=== PATIENT | female | born 1995 | race Caucasian/White ===

== ENCOUNTER 2018-09-29 12:51 | Emergency (ER) | END 2018-09-29 18:37 | disposition home or self-care (01) ==

== ENCOUNTER 2018-10-16 12:06 | Emergency (ER) | payer OTHER ==
[~2018-10-16] VITALS: Wt 65.3 kg
[~2018-10-16 12:06] MED LIST: CEPH-443 PO; CYCL10TA7 PO; DOXY1TAB3 PO; IBUP-1542 PO
[2018-10-16] MEDS ORDERED: SOD CHLORIDE 0.9% 1,000 ML IV STA (13:34)
--- NOTE | 2018-10-16 13:47 | ERD ---
ER Documentation Chief Complaint Chief Complaint 11wks preg: vom x3d, vag bld x2 episodes 2d ago, L sided AP hx ova cyst HPI 23-year-old 11-week history of hyperemesis and left side ovarian cyst presents vomiting vaginal bleeding. Patient was seen for vomiting in our ER on September 29. Patient has been taking 10 mg of metoclopramide, last intake was 5 AM this morning states that it only worked for the first week. Patient denies fevers, bilious vomiting, dysuria, back pain. In addition, patient states that she experienced episodes vaginal bleeding. First episode occurred on the , she noticed blood in her urine, and she went through one pad. Second episode occurred 3 days ago. He noticed blood on underwear, did not go through any pads. Patient's last visit she was diagnosed with the UTI she states she may not have finished her course of antibiotics. States that she has been having polyuria, and incomplete voiding. Also states that she is having some mild LLQ abdominal pain. History of left-sided ovarian cysts. Denies allergies. Taking metoclopramide 10 mg. History of . Denies social. ROS All systems reviewed and are negative except as per history of present illness. Medications Home Meds Active Scripts Meclizine Hcl* (Meclizine Hcl*) 25 Mg Tablet, 25 MG PO Q6H PRN for VOMITTING, #30 TAB 0 Refills Prov:LEOBARDO GODDARD 10/16/18 Cephalexin* (Keflex*) 500 Mg Capsule, 500 MG PO TID for UTI for 7 Days, #21 CAP 0 Refills Prov:LEOBARDO GODDARD 10/16/18 Cephalexin* (Keflex*) 500 Mg Capsule, 500 MG PO BID for 7 Days, CAP Prov:FELIX DURANT MD 09/29/18 Doxylamine/Pyridoxine Hcl (DERICK TRAVIS 10-10 MG TABLET) 1 Each Tablet., 1 TAB PO BID PRN for NAUSEA, #30 TAB Prov:FELIX DURANT MD 09/29/18 Cyclobenzaprine Hcl* (Cyclobenzaprine Hcl*) 10 Mg Tablet, 10 MG PO TID, #15 TAB Prov:YUSUF SCHAEFER PA-C 06/04/16 Ibuprofen* (Ibuprofen*) 600 Mg Tablet, 600 MG PO Q6H PRN for PAIN LEVEL 1-5, #30 TAB Prov:YUSUF SCHAEFER PA-C 06/04/16 Cephalexin* (Keflex*) 500 Mg Capsule, 500 MG PO Q6 for 10 Days, CAP Prov:MOSHE CONKLIN MD 09/28/15 Ibuprofen* (Motrin*) 600 Mg Tab, 600 MG PO Q6H PRN for PAIN AND OR ELEVATED TEMP, #20 TAB Prov:MOSHE CONKLIN MD 09/28/15 Allergies Allergies: Coded Allergies: No Known Allergy (Unverified , 04/14/15) PMhx/Soc History of Surgery: Yes () Anesthesia Reaction: No Hx Neurological Disorder: No Hx Respiratory Disorders: No Hx Cardiac Disorders: No Hx Psychiatric Problems: No Hx Miscellaneous Medical Probl: Yes (8 weeks ) Hx Alcohol Use: No Hx Substance Use: No Hx Tobacco Use: No FmHx Family History: No diabetes, No coronary disease, No other Physical Exam Vitals Vital Signs Date Temp Pulse Resp B/P (MAP) Pulse Ox O2 O2 Flow FiO2 Time Delivery Rate 10/16/18 98.7 83 18 111/62 97 16:17 (78) 10/16/18 97.1 110 18 122/96 96 12:15 (105) Physical Exam General: Well developed, will nourished. No acute distress. Heart: RR w/o murmur, rubs, or gallops. Lungs: Clear to auscultation bilaterally w/o wheezes, crackles, rhonchi. Symmetric rise and fall. Equal breath sounds. Abdomen: Mild ULQ and suprapubic tenderness noted, otherwise soft, nontender, with no rigidity or guarding. No masses, lesions, or ecchymoses. Normoactive bowel sounds. No McBurney's point tenderness. No CVA tenderness. Result Diagram: 10/16/18 1352 10/16/18 1352 Results 24 hrs Laboratory Tests Test 10/16/18 13:49 10/16/18 13:52 Urine Color SAE Urine Clarity CLOUDY Urine pH 5.0 Urine Specific Hudson 1.028 Urine Ketones 1+ mg/dL Urine Nitrite NEGATIVE mg/dL Urine Bilirubin NEGATIVE mg/dL Urine Urobilinogen 1+ mg/dL Urine Leukocyte Esterase 1+ Conrad/ul Urine Microscopic RBC 3 /HPF Urine Microscopic WBC 14 /HPF Urine Squamous Epithelial Cells MODERATE /HPF Urine Bacteria MANY /HPF Urine Mucus MANY /HPF Urine Hemoglobin NEGATIVE mg/dL Urine Glucose NEGATIVE mg/dL Urine Total Protein 1+ mg/dl White Blood Count 9.7 10^3/ul Red Blood Count 4.62 10^6/ul Hemoglobin 14.1 g/dl Hematocrit 41.1 % Mean Corpuscular Volume 89.0 fl Mean Corpuscular Hemoglobin 30.5 pg Mean Corpuscular Hemoglobin Concent 34.3 g/dl Red Cell Distribution Width 12.3 % Platelet Count 286 10^3/UL Mean Platelet Volume 9.5 fl Immature Granulocytes % 0.400 % Neutrophils % 80.4 % Lymphocytes % 13.0 % Monocytes % 6.0 % Eosinophils % 0.1 % Basophils % 0.1 % Nucleated Red Blood Cells % 0.0 /100WBC Immature Granulocytes # 0.040 10^3/ul Neutrophils # 7.8 10^3/ul Lymphocytes # 1.3 10^3/ul Monocytes # 0.6 10^3/ul Eosinophils # 0.0 10^3/ul Basophils # 0.0 10^3/ul Nucleated Red Blood Cells # 0.0 10^3/ul Sodium Level 142 mmol/L Potassium Level 3.9 mmol/L Chloride Level 102 mmol/L Carbon Dioxide Level 26 mmol/L Anion Gap 14 Blood Urea Nitrogen 5 mg/dl Creatinine 0.48 mg/dl Est Glomerular Filtrat Rate mL/min > 60 mL/min Glucose Level 109 mg/dl Calcium Level 9.6 mg/dl Total Bilirubin 0.2 mg/dl Direct Bilirubin 0.00 mg/dl Indirect Bilirubin 0.2 mg/dl Aspartate Amino Transf (AST/SGOT) 24 IU/L Alanine Aminotransferase (ALT/SGPT) 27 IU/L Alkaline Phosphatase 85 IU/L Total Protein 8.0 g/dl Albumin 4.1 g/dl Globulin 3.90 g/dl Albumin/Globulin Ratio 1.05 Lipase 45 U/L Beta HCG, Quantitative 391612.0 mIU/ml Current Medications Medications Dose Sig/Ekaterina Start Time Status Last (Trade) Ordered Route PRN Stop Time Admin Dose Reason Admin Sodium 1,000 ml @ Q1H STAT 10/16/18 DC 10/16/18 Chloride 1,000 mls/hr IV 13:34 14:10 10/16/18 14:33 5 mg ONCE ONCE 10/16/18 DC 10/16/18 Metoclopramid IV 14:00 14:10 e HCl 10/16/18 (Reglan) 14:01 Procedures/MDM DIAGNOSTIC IMAGING REPORT Patient: DOMINIK ROACH : 1995 Age: 23 Sex: F MR #: [id number] DOS: 10/16/18 1334 Ordering MD: LEOBARDO GODDARD Location: [facility] Room/Bed: PROCEDURE: US OB. CLINICAL INDICATION: Vaginal bleeding. TECHNIQUE: Multiple sonographic images of the pelvis were obtained utilizing a transabdominally technique. The images were reviewed on a PACS workstation. COMPARISON: None FINDINGS: The uterus is visualized . The endometrial echo is thickened and there is an intrauterine gestational sac. A yolk sac and pole is noted and crown-rump length, measures 5.1 cm . This corresponds to a mean gestational age of 11 weeks and 5 days. cardiac activity measures 168 bpm. There is a small subchorionic hemorrhage measuring 1.8 x 1.3 cm. The right ovary measures 4.0 x 1.4 x 2.5 cm. The left ovary measures 3.2 x 1.1 x 2.3 cm. There is no significant free fluid. IMPRESSION: 1. Single live intrauterine corresponding to a mean gestational age of 11 weeks and 5 days. cardiac activity measures 168 bpm. Estimated due date is May 02, 2019 2. Both ovaries are within normal limits. No gross adnexal masses. No significant free fluid. 3. Small subchorionic hemorrhage, measuring 1.8 x 1.3 cm. Recommend follow-up. RPTAT: AARR Physician Ronnie Date Time Electronically viewed and signed by Physician Ronnie on 10/16/2018 14:48 JL/ CC: LEOBARDO GODDARD [id number] ER Course: PO fluid challenge ,CBC, UA, UC, beta quant HCG, type and RH, lipase, vaginal US/abdominal US ordered. UA showed Possible UTI. US showed subchorionic hemorrhage. MDM: 23-year-old 11-week history of hyperemesis and left s cheryl ovarian cyst presents vomiting vaginal bleeding. Patient was seen for vomiting in our ER on September 29. Patient has been taking 10 mg of metoclopramide, last intake was 5 AM this morning states that it only worked for the first week. Patient denies fevers, bilious vomiting, dysuria, back pain. In addition, patient states that she experienced episodes vaginal bleeding. First episode occurred on the , she noticed blood in her urine, and she went through one pad. Second episode occurred 3 days ago. He noticed blood on underwear, did not go through any pads. Patient's last visit she was diagnosed with the UTI she states she may not have finished her course of antibiotics. States that she has been having polyuria, and incomplete voiding. Also states that she is having some mild LLQ abdominal pain. UA showed possible UTI but also signs that sample was contaminated. Because of state of patient as well as patient exhibiting symptoms of UTI, decision was made to treat with a course of Keflex. In addition, patient had a previous UTI and stated that she did not take the Keflex as prescribed. Due to patients complaint of vaginal bleeding, an ultrasound was ordered which showed live intrauterine with subchorionic hemorrhage. To treat patients hyperemesis gravidum, patient was given IV metoclopramide which resolved patients symptoms. Patient was with rx for meclizine since patient had been taking PO metoclopramide and said it stopped working. I explained to patient that her hyperemesis needs to be treated by her obgyn or PCP on an outpatient basis. Patient passed PO fluid challenge and given 1L saline in ER. I have low suspicion for ectopic based on results of US, hemodynamic stability, physical exam and patient history. I have low suspicion for inevitable, partial, or missed based on patient history, physical exam, and results of US. I have low suspicion for appendicitis, cholecystitis, bowel obstruction, ovarian torsion, symptomatic anemia, PID, surgical abdomen, or other life threatening conditions based on patient history, physical exam, and lab/imaging results. Patient discharged with strict ER precautions. 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 All questions answered at discharge. Departure Diagnosis: Primary Impression: Subchorionic hemorrhage in first trimester Fetus number: single or unspecified fetus Qualified Codes: O41.8X10 - Other specified disorders of amniotic fluid and membranes, first trimester, not applicable or unspecified; O46.8X1 - Other antepartum hemorrhage, first trimester Additional Impressions: Vaginal bleeding in patient at less than 20 weeks gestation Vomiting Vomiting type: unspecified Vomiting Intractability: intractable Nausea presence: with nausea Qualified Codes: R11.2 - Nausea with vomiting, unspecified Abdominal pain during intrauterine Condition: Stable LEOBARDO GODDARD Oct 16, 2018 13:47
[2018-10-16] MEDS ORDERED: METOCLOPRAMIDE 10 MG INJ IV ONE (14:00)
[2018-10-16] MEDS ORDERED: CEPH-443 PO (15:32)
[2018-10-16] MEDS ORDERED: MECL12.574 PO (15:54)
[2018-10-16] MEDS ORDERED: MECL-77 PO (15:56)
[2018-10-16 16:17] VITALS: BP 111/62; PULSE 83; RESP 18
== END 2018-10-16 16:20 | disposition home or self-care (01) ==
LOC: FTE 12:06
DX: O41.8X10 Other specified disorders of amniotic fluid and membranes, first trimester, not applicable or unspecified (principal); O46.8X1 Other antepartum hemorrhage, first trimester; O21.9 Vomiting of pregnancy, unspecified; R10.32 Left lower quadrant pain; Z3A.11 11 weeks gestation of pregnancy
CPT/HCPCS: 36415; 76801; 80053; 81001; 83690; 84702; 85025; 86900; 86901; 87086; 96361; 96374; J7030; Z7502

== ENCOUNTER 2019-04-25 15:54 | Inpatient (IN) | payer OTHER ==
[~2019-04-25] VITALS: Ht 162.6 cm; Wt 86.1 kg
[~2019-04-25 15:54] MED LIST changes: +MECL-77 PO; +ONDA4TAB14 PO
[2019-04-25 16:29] VITALS: Ht 162.6 cm; Wt 86.1 kg
[2019-04-25 16:30] VITALS: BP 129/73; PULSE 71; RESP 18
[2019-04-25] MEDS ORDERED: PREN-99 PO (16:33)
--- NOTE | 2019-04-25 17:59 | TRIAGE ---
OB Triage Datetime Report Generated by CPN: 04/25/2019 17:58 Datetime: 04/25/2019 17:30 Labor Evaluation Frequency: x6 Monitor Mode: External Duration (sec)2399: 50-60 Quality: Mild Pattern: Normal: <= 5 Contractions in 10 Minutes Resting Tone [place]: Relaxed Heart Rate FHR Baseline Rate: 130 Monitor Mode: External US FHR Baseline Changes: No Baseline Change Variability: Moderate 6-25 bpm Accelerations: 15X15 Decelerations: None Category: Category I Datetime: 04/25/2019 16:40 Vaginal Exam Dilatation (cms): 0.0 Effacement (%): 0 Station: -3 Exam By: AO Datetime: 04/25/2019 16:36 Stage of : OB Triage Assessment Type: Triage EGA: 39.0 Maternal Assessment Level of Consciousness: Keenly Alert, Responsive DTR's/Clonus: DTRs 2+; No Clonus Headache: Denies Blurred Vision: No Respiratory Effort: Unlabored; Regular Rhythm; Equal Expansion Breath Sounds, Left: Clear and Equal Breath Sounds, Right: Clear and Equal Nausea/Vomiting: Denies RUQ Epigastric Pain: Denies Lower Extremities Edema: Bilateral Lower Extremities Degree: 1+ Upper Extremities Edema: None Degree: None Facial Edema: None Temperature Route: Oral Fall Risk Assessment History of Falling: (0) No Secondary Diagnosis: (0) No Ambulatory Aid: (0) Bedrest/Nurse Assist IV Therapy: (0) No Gait: (0) Normal/Bedrest/Immobile Mental Status: (0) Oriented to Own Ability Fall Score: 0 Fall Risk Score Definition: No Risk: No action required Labor Evaluation Frequency: x1 Monitor Mode: External Duration (sec)2399: 80 Quality: Mild Resting Tone [place]: Relaxed Heart Rate FHR Baseline Rate: 140 Monitor Mode: External US FHR Baseline Changes: No Baseline Change Variability: Moderate 6-25 bpm Accelerations: 15X15 Decelerations: None Category: Category I Pain Assessment Pain Scale: 5 Pain Presence: Intermittent Pain Type: Contraction Pain Location: Abdomen Datetime: 04/25/2019 16:34 Time of Arrival: 04/25/2019 15:44 Arrived By: Ambulatory Arrived From: Office Chief Complaint: UCs Movement: Present Contractions: Regular Time Contractions Began: 04/25/2019 00:00 Contractions: q 5 min Rupture of Membranes: Denies Vaginal Bleeding: None Vaginal Discharge: Denies Recent Sexual Intercouse: Denies Abdominal Trauma: Not Applicable Patient Complaints: Contractions Time Provider Notified: 04/25/2019 16:50 Provider Notified: Dr Rebollar (Annotations: Data stored by N on behalf of user) Initial Plan: EFJose Armando
[2019-04-25] MEDS: LACTATED RINGER'S 500 ML IV SCH ×2 (18:20→22:20)
[2019-04-25] MEDS ORDERED: METHYLERGONOVINE 0.2 MG INJ IM PRN ×2 (18:30→22:00)
[2019-04-25] MEDS ORDERED: CARBOPROST 250 MCG INJ IM PRN ×2 (18:30→22:00)
[2019-04-25] MEDS ORDERED: OXYTOCIN 30 UNITS/LR 500 ML IV PRN ×2 (18:30→22:00)
[2019-04-25] MEDS ORDERED: MISOPROSTOL 200 MCG TAB PR PRN ×2 (18:30→22:00)
[2019-04-25] MEDS ORDERED: CEFAZOLIN 2 GM/50 ML (PMX) 50 ML IVPB SCH (18:30)
[2019-04-25] MEDS ORDERED: OXYTOCIN 30 UNITS/LR 500 ML IV SCH ×2 (18:30→21:51)
--- NOTE | 2019-04-25 18:48 | PREAC ---
Date/Time of Note Date/Time of Note DATE: 04/25/19 TIME: 18:45 Anesthesia Eval and Record Evaluation Time Pre-Procedure Interview DATE: 04/25/19 TIME: 18:45 Age 23 Sex female NPO: 8 hrs Preoperative diagnosis in labor with previous C/S Planned procedure Repeat C-S Past Medical History Past Medical History: None Surgery & Anesthesia Issues No known issue Meds Anticoagulation: No Beta Leyda within 24 hr: No Reason Beta Leyda not given: Pt. not on B-Leyda Active Scripts Ondansetron (Ondansetron Odt) 4 Mg Tab.rapdis, 4 MG PO Q6H PRN for NAUSEA AND/OR VOMITING, #10 TAB Prov:ULISES FUENTES PA-C 11/20/18 Meclizine Hcl* (Meclizine Hcl*) 25 Mg Tablet, 25 MG PO Q6H PRN for VOMITTING, #30 TAB 0 Refills Prov:LEOBARDO GODDARD 10/16/18 Cephalexin* (Keflex*) 500 Mg Capsule, 500 MG PO TID for UTI for 7 Days, #21 CAP 0 Refills Prov:LEOBARDO GODDARD 10/16/18 Cephalexin* (Keflex*) 500 Mg Capsule, 500 MG PO BID for 7 Days, CAP Prov:FELIX DURANT MD 09/29/18 Doxylamine/Pyridoxine Hcl (JOELLEGIS 10-10 MG TABLET) 1 Each Tablet.dr, 1 TAB PO BID PRN for NAUSEA, #30 TAB Prov:FELIX DURANT MD 09/29/18 Cyclobenzaprine Hcl* (Cyclobenzaprine Hcl*) 10 Mg Tablet, 10 MG PO TID, #15 TAB Prov:YUSUF SCHAEFER PA-C 06/04/16 Ibuprofen* (Ibuprofen*) 600 Mg Tablet, 600 MG PO Q6H PRN for PAIN LEVEL 1-5, #30 TAB Prov:YUSUF SCHAEFER PA-C 06/04/16 Cephalexin* (Keflex*) 500 Mg Capsule, 500 MG PO Q6 for 10 Days, CAP Prov:MOSHE CONKLIN MD 09/28/15 Ibuprofen* (Motrin*) 600 Mg Tab, 600 MG PO Q6H PRN for PAIN AND OR ELEVATED TEMP, #20 TAB Prov:MOSHE CONKLIN MD 09/28/15 Reported Medications Vit #76/Iron,Carb/FA (Pnv 29-1 Tablet) 1 Each Tablet, 1 EACH PO DAILY, TAB 04/25/19 Current Medications Lactated Ringer's 1,000 ml @ 125 mls/hr Q8H IV ; Start 04/25/19 at 18:20 Lactated Ringer's 500 ml @ 125 mls/hr Q4H IV ; Start 04/25/19 at 18:20 Cefazolin Sodium/ Dextrose 50 ml @ 100 mls/hr ONCE IVPB ; Start 04/25/19 at 18:30 Oxytocin/Lactated Ringer's 500 ml @ 125 mls/hr POST IV ; Start 04/25/19 at 18:30 Oxytocin/Lactated Ringer's 500 ml @ 0 mls/hr ONCE PRN IV .VAGINAL BLEEDING; Start 04/25/19 at 18:30 Methylergonovine Maleate (Methergine) 0.2 mg ONCE PRN IM .VAGINAL BLEEDING; Start 04/25/19 at 18:30 Carboprost Tromethamine (Hemabate) 250 mcg ONCE PRN IM .VAGINAL BLEEDING; Start 04/25/19 at 18:30 Misoprostol (Cytotec) 1,000 mcg ONCE PRN PA .VAGINAL BLEEDING; Start 04/25/19 at 18:30 Meds reviewed: Yes Allergies Coded Allergies: No Known Allergy (Unverified , 04/14/15) Allergies Reviewed: Yes Labs/Studies Labs Reviewed: Reviewed by anesthesiologist test: Positive Pre-procedure Exam Last vitals Vital Signs Date Temp Pulse Resp B/P (MAP) Pulse Ox O2 O2 Flow FiO2 Time Delivery Rate 04/25/19 98.5 71 18 129/73 Room Air 16:30 (91) Airway: Adequate mouth opening Mallampati: Mallampati II Teeth: Normal Lung: Normal Heart: Normal ASA Physical Status ASA physical status: 2 Emergency: None Planned Anesthetic Neuraxial: Spinal Planned Pain Management Sub-arachniod narcotics Pre-operative Attestations Prior to commencing anesthesia and surgery, the patient was re-evaluated, there was verification of: *The patient's identity *The results of appropriate recent lab work and preoperative vital signs *The above evaluation not changing prior to induction *Anesthetic plan, risk benefits, alternative and complications discussed with patient/family; questions answered; patient/family understands, accepts and wishes to proceed. DONNIE CALERO MD Apr 25, 2019 18:48
[2019-04-25] MEDS: LACTATED RINGER'S 1,000 ML IV SCH ×2 (18:51→19:09)
[2019-04-25] MEDS ORDERED: EPHEDrine 25 MG/5 ML SYG ONE (20:00)
--- NOTE | 2019-04-25 20:09 | HP ---
Date/Time of Note Date/Time of Note DATE: 04/25/19 TIME: 20:05 OB - History Hx of Present Free Text/Dictation April 25, 2019 : 2 Para: 1 Other Concerns: 23-year-old G2, P1 with IUP at 39 weeks and history of x1 presented with uterine contractions. She was a scheduled previously for repeat section. Patient denies any leaking of fluid vaginal bleeding or decreased movement. Reports her was due to intolerance to labor. She denies any complication during her course. Past Family/Social History * Past Medical, Surgical, Family and Obstetric Histories reviewed from chart. OB Admission Exam Vital Signs Vital Signs Vital Signs Date Temp Pulse Resp B/P (MAP) Pulse Ox O2 O2 Flow FiO2 Time Delivery Rate 04/25/19 98.5 71 18 129/73 Room Air 16:30 (91) Physical Exam HEENT: WNL Heart: Rhythm Normal Lungs: Clear Abdomen: WNL Extremities: Normal Reflexes: Normal Cervical Dilatation: None Effacement: 0% Station: -3 Membranes: Intact Heart Rate: 130's Accelerations: Accelerations Present Decelerations: No Decelerations Varibility: Moderate Contractions on Admission: < 5 Minutes Apart Intensity: Moderate Last 72 hours Lab Results CBC & BMP 04/25/19 18:15 OB Assessment/Plan Other Assessment: IUP at 39 weeks History of x1 Uterine contractions, likely early labor GBS negative Patient is here for repeat section Risk and benefit of section including risk of infection, bleeding, damage to surrounding structures including bowel and bladder and risk of blood transfusion including but not limited to blood borne infection including HIV, hepatitis B and C and transfusion reaction as well as risk of anesthesia, risk of scar, pain, hysterectomy discussed with the patient Patient verbalized understanding. Checks of blood transfusion in case of emergency. All questions were answered to patient's best satisfaction. Consent was signed. Proceed with repeat low transverse section Receive Ancef for prophylaxis prior to surgery. ROBYN DUNN MD Apr 25, 2019 20:09
[2019-04-25] MEDS ORDERED: morphine SULFATE/PF (10 MG/10 ML) INJ ONE (20:10)
[2019-04-25] MEDS ORDERED: OXYTOCIN 10 UNIT INJ ONE ×2 (20:10→21:16)
[2019-04-25] MEDS ORDERED: OXYTOCIN 30 UNITS/LR 500 ML IV ONE (20:10)
[2019-04-25] MEDS ORDERED: ONDANSETRON 4 MG INJ ONE (20:10)
[2019-04-25] MEDS ORDERED: METOCLOPRAMIDE 10 MG INJ ONE (20:10)
[2019-04-25] MEDS ORDERED: MIDAZOLAM 1 MG/ML 2 ML INJ ONE (21:10)
--- NOTE | 2019-04-25 21:45 | OPR ---
Operative Report Planned Procedure Free Text/Dictation April 25, 2019 Procedure date Apr 25, 2019 Procedure(s) Repeat section via Pfannenstiel skin incision Performed by see signature line Tube Washer: SARA VAN MD 2nd Tube Washer Surgical scrub Anesthesiologist: DONNIE CALERO MD Pre-procedure diagnosis 1 . IUP at 39 weeks 2. History of x1 3 contractions. [id number] Anesthesia Type: [id number] spinal Post-Procedure Post-procedure diagnosis Same Findings Live Baby Male [], Apgars 8. 9 and [], weight [], position [vertex], [] presentation [vertex , Nuchak ]cord x 1 , loose After delivery of the head immediately nose and mouth was suctioned using daily suction. Cord was cut and clamped. Baby was handed to the waiting nursing team Estimated Blood Loss: 600 - 700 mls Specimen(s) none Grafts/Implant(s) none Complication(s) none Pt Condition post procedure: stable Disposition: PACU Procedure Description 23-year-old G2, P1 with history of x1 presented in labor. She was candidate for repeat section. Risk and benefit of section including risk of infection bleeding damage to adjacent structures including bowel and bladder and risk of scar, pain, need for additional surgery including section and hysterectomy and risk of blood transfusion including but not limited to blood borne infection including HIV, hepatitis B and C and transfusion reaction discussed with patient in detail and informed consent was obtained. Patient verbalized understanding all above risks. She signed a consent for repeat section. She was then transferred to the OR and was placed in the dorsal supine position with a leftward tilt after adequate spinal anesthesia. Timeout was completed and patient was identified correctly. Then after reassurance about adequate anesthesia a Pfannenstiel skin incision was made in the area of prior incision. Scar was removed. Then the fascia was opened using scalpel and Bovie in the transverse fashion. Then the superior aspect of fascial incision was grasped using Osmany, was elevated and was dissected off of the rectus muscle using Bovie and sharp dissection. In the inferior aspect of fascial incision in a similar fashion was grasped and was elevated and was dissected off of the parameters muscle in a similar fashion. Then the rectus muscles dissected in the midline. Parietal peritoneum was i dentified and intra-abdominal cavity entered sharp without any complication. Then the lower uterine segment was identified. J Luis retractor was placed. A bladder flap was created. Bladder blade was placed. Then after making bladder flap the lower uterine segment was incised transversely. Amniotic sac was ruptured. Clear fluid was noted. Baby's head was grasped and was brought up to the incision and while clerical administrative assistant was applying fundal pressure head was delivered. Immediately nose and mouth was suctioned using daily suction. Then while clerical administrative assistant was applying fundal pressure anterior shoulder then the posterior shoulder and the rest of the body delivered without any complication. Then at 30 secong delayed cord clamp was done. Then the baby was handed to the NICU team. Then cord blood was obtained. Placenta delivered complete and intact. Uterus was cleared of all clots and debris's. Uterine incision repaired in 2 layers using 1-0 Monocryl. First layer used for hemostasis and the second layer used for imbrication. Excellent hemostasis of urine incision was obtained. Then gutters were cleared of all clots and debris's. Parietal peritoneum then was repaired in the midline using 2-0 Vicryl in a continuous fashion. Rectus muscle was reapproximated using 2-0 Vicryl in a continuous fashion. Hemostasis of the rectus muscles obtained. Then the fascia was reapproximated using one 0-0 Vicryl in a continuous fashion. Irrigation of the suppleness tissue then was performed using warm normal saline. Hemostasis of the suppleness tissue obtained using Bovie. Then the skin was reapproximated using 3-0 Monocryl in a subcortical fashion. Fundus was firm at the end of the delivery. Patient tolerated the procedure well. Sponge, needle counts were correct x2. Patient was then transferred to recovery room in stable condition ROBYN DUNN MD Apr 25, 2019 21:45
[2019-04-25] MEDS ORDERED: LACTATED RINGER'S 1,000 ML IV SCH (21:51)
[2019-04-25] MEDS ORDERED: HYDROCODONE/APAP (5/325) TAB PO PRN (22:00)
[2019-04-25] MEDS ORDERED: METHYLERGONOVINE 0.2 MG TAB PO PRN (22:00)
[2019-04-25] MEDS ORDERED: ONDANSETRON (ODT) 4 MG TAB ODT PRN (22:00)
[2019-04-25] MEDS ORDERED: LANOLIN HPA 1 PKT TOP PRN (22:00)
[2019-04-25] MEDS ORDERED: morphine SULFATE/PF (10 MG/10 ML) INJ SPINAL ONE (23:30)
[2019-04-25] MEDS ORDERED: ONDANSETRON 4 MG INJ IV PRN (23:30)
[2019-04-25] MEDS ORDERED: morphine 2 MG INJ IV PRN ×2 (23:30)
[2019-04-25] MEDS ORDERED: EPHEDrine 25 MG/5 ML SYG IV PRN (23:30)
[2019-04-25] MEDS ORDERED: NALOXONE (0.4 MG/ML) INJ IV PRN (23:30)
[2019-04-25] MEDS ORDERED: DIPHENHYDRAMINE 50 MG INJ IV PRN (23:30)
[2019-04-25] MEDS: KETOROLAC 30 MG INJ IV PRN (23:32)
[2019-04-26 00:35] VITALS: BP 119/82; PULSE 64; RESP 19
[2019-04-26] MEDS: LACTATED RINGER'S 500 ML IV SCH ×5 (02:20→18:20)
[2019-04-26 03:30] VITALS: BP 112/63; PULSE 72; RESP 20
[2019-04-26] MEDS: IBUPROFEN 600 MG TAB PO SCH ×5 (06:00→23:47)
[2019-04-26 08:00] VITALS: BP 117/61; PULSE 92; RESP 18
--- NOTE | 2019-04-26 08:39 | PAC ---
Date/Time of Note Date/Time of Note DATE: 04/26/19 TIME: 08:39 Post-Anesthesia Notes Post-Anesthesia Note Last documented vital signs Vital Signs Date Temp Pulse Resp B/P (MAP) Pulse Ox O2 O2 Flow FiO2 Time Delivery Rate 04/26/19 98.0 72 20 112/63 98 Room Air 03:30 (79) Activity: WNL Respiratory function: WNL Cardiovascular function: WNL Mental status: Baseline Pain reasonably controlled: Yes Hydration appropriate: Yes Nausea/Vomiting absent: Yes DONNIE CALERO MD Apr 26, 2019 08:39
[2019-04-26] MEDS: CEPHALEXIN 500 MG CAP PO SCH ×3 (09:48→21:13)
[2019-04-26] MEDS: KETOROLAC 30 MG INJ IV PRN ×2 (09:48→17:01)
--- NOTE | 2019-04-26 11:23 | OPPN ---
Date/Time of Note Date/Time of Note DATE: 04/26/19 TIME: 11:16 Anesthesia Follow up Anesthesia Follow up Last documented vital signs Vital Signs Date Temp Pulse Resp B/P (MAP) Pulse Ox O2 O2 Flow FiO2 Time Delivery Rate 04/26/19 98.7 92 18 117/61 98 Room Air 08:00 (79) Respiratory function: WNL Cardiovascular function: WNL Comments Postoperative pain in good control with spinal duramorph. Vital signs stable. No other specific complaints. DONNIE CALERO MD Apr 26, 2019 11:23
[2019-04-26 12:31] VITALS: BP 111/60; PULSE 79; RESP 19
[2019-04-26 15:46] VITALS: BP 119/71; PULSE 78; RESP 17
--- NOTE | 2019-04-26 17:25 | PN ---
Date/Time of Note Date/Time of Note DATE: 04/26/19 TIME: 17:25 OB Subjective Subjective Subjective Subjective: Patient without complaints. Tolerating a regular diet. Breast-feeding. Lochia within normal limits. + ambulating. + Flatus. + muhammad. Objective: Vital signs within normal limits. H/H: 9.3/28.5 General: No apparent distress. Abdomen: Deferred pt breast feeding Incision: Dressing in place Extremities nontender to palpation. Assessment/plan: 1. day #1. routine pp care. 2. Anemia acute blood loss-expectant. LOBO CHA MD Apr 26, 2019 17:25
[2019-04-26 19:50] VITALS: BP 109/67; PULSE 98; RESP 17
[2019-04-27 03:30] VITALS: BP 130/73; PULSE 83; RESP 19
[2019-04-27] MEDS: IBUPROFEN 600 MG TAB PO SCH ×2 (05:30→12:15)
[2019-04-27 08:00] VITALS: BP 116/78; PULSE 71; RESP 16
[2019-04-27] MEDS: CEPHALEXIN 500 MG CAP PO SCH ×2 (08:59→12:15)
[2019-04-27] MEDS ORDERED: FERROUS SULFATE (EC) 325 MG TAB PO SCH (09:00)
--- NOTE | 2019-04-27 14:06 | DS ---
Date/Time of Note Date/Time of Note DATE: 04/27/19 TIME: 14:06 Obstetrical Discharge Record Final Diagnosis Final Diagnosis: Term delivered Other Final Diagnosis Subjective: Patient without complaints. Tolerating regular diet. ambulating. voiding. +flatus. Objective: Vital signs stable and wnl H/H: 9.3/28.5 General: No apparent distress. Abdomen: Fundus firm two fingerbreadths below umbillicus Incision: C/D/I Extremities nontender to palpation. Assessment/plan: 1. day#2 cs-presented to the hospital at 39 weeks and 1 day with contractions and underwent a repeat section on 04/25/2019. Her hospital course was uncomplicated. 2. Anemia acute blood loss-ferrous sulfate Condition on Discharge Physical Assessment Patient Condition: Stable MILESTONE,LOBO RICH Apr 27, 2019 14:06
[2019-04-27] MEDS ORDERED: IBUP-1542 PO (14:09)
[2019-04-27] MEDS ORDERED: FER325 PO (14:09)
[2019-04-27 15:35] VITALS: BP 115/81; PULSE 72; RESP 18
[2019-04-28] MEDS ORDERED: MEASLES,MUMPS,RUBELLA VACCINE INJ SC* ONE (09:00)
[2019-04-28] MEDS ORDERED: DIPHTH/TET/ACEL PERTUSS (ADULT) 0.5 ML VIAL IM* ONE (09:00)
--- NOTE | 2019-04-28 17:48 | DELSUM ---
Delivery Summary A-C Datetime Report Generated by CPN: 04/28/2019 17:48 DELIVERY PERSONNEL Hotel Associate: Gen Citlali MATERNAL INFORMATION Delivery Anesthesia: Spinal Medications in Delivery: see anesthesia records Delivery QBL (ml): 500 Placenta Cultured: No Maternal Complications: None LABOR SUMMARY EDC: 05/02/2019 00:00 No. Babies in Womb: 1 Attempted: No Labor Anesthesia: None LABOR INFORMATION Reason for Induction: Not Applicable Onset of Labor: 04/25/2019 00:00 Group B Beta Strep: Negative Antibiotics # of Doses: 1 Antibiotics Time of Last Dose: 04/25/2019 20:12 Steroids Given: None Reason Steroids Not Administered: Not Applicable MEMBRANES Membranes Rupture Method: Artificial Rupture of Membranes: 04/25/2019 20:49 Length of Rupture (hr): 0.02 Amniotic Fluid Color: Clear Amniotic Fluid Amount: Moderate Amniotic Fluid Odor: None STAGES OF LABOR Stage 3 hr: 0 Stage 3 min: 1 Total Time in Labor hr: 20 Total Time in Labor min: 51 CSECTION DELIVERY Primary Indication: Repeat Elective Secondary Indication: N/A CSection Urgency: Elective CSection Incidence: Repeat Labor: Labor Elective: N/A CSection Incision: Lower Uterine Transverse BABY A INFORMATION Delivery Date/Time: 04/25/2019 20:50 Method of Delivery: Born in Route : No : N/A Forceps: N/A Vacuum Extraction: N/A Shoulder Dystocia : N/A SHOULDER DYSTOCIA BABY A Delivery Date/Time: 04/25/2019 20:50 PRESENTATION/POSITION BABY A Presentation: Cephalic Cephalic Presentation: Vertex Vertex Position: Left Occipital Posterior Breech Presentation: N/A PLACENTA INFORMATION BABY A Placenta Delivery Time : 04/25/2019 20:51 Placenta Method of Delivery: Manual Removal Placenta Status: Delivered SCORES BABY A Heart Rate 1 min: >100 bpm Resp Effort 1 min: Good Cry Reflex Irritability 1 min: Cough/Sneeze/Pulls Away Muscle Tone 1 min: Active Motion Color 1 min: Blue/Pale Resuscitation Effort 1 min: Tactile Stimulation; Oxygen SCORE 1 MIN: 8 Heart Rate 5 min: >100 bpm Resp Effort 5 min: Good Cry Reflex Irritability 5 min: Cough/Sneeze/Pulls Away Muscle Tone 5 min: Active Motion Color 5 min: Body [place], Extremit Blue Resuscitation Effort 5 min: Tactile Stimulation SCORE 5 MIN: 9 INFANT INFORMATION BABY A Gestational Age at Delivery: 39.0 Gestational Status: Full Term- 39- 40.6 Weeks Outcome : Liveborn, with signs of life Condition : Stable Infant Sex: Male IDENTIFICATION/MEDS BABY A ID Band Number: [id number] ID Band Location: Right Leg; Left Arm Sensor Applied: Yes Sensor Number: [id number] Sensor Location : Cord Clamp Vitamin K Given : Not Given Erythromycin Given: Not Given WEIGHT/LENGTH BABY A Birthweight (gm): 2670 Infant Weight (lb): 5 Weight (oz): 14 Infant Length (in): 19.50 Infant Length (cm): 49.53 CORD INFORMATION BABY A No. Cord Vessels: 3 Nuchal Cord : Around Neck x1, Loose Cord Blood Taken: Yes Suction: Mouth; Nose ASSESSMENT BABY A Infant Complications: None Physical Findings at Delivery: Within Normal Limits Physical Findings- Other: VOID X1 Infant Respirations: Appears Normal Team Sports Sales Associate/ALS Called : No Care By: Ron HOLLAND RN Transferred To: Remains with Mother
== END 2019-04-27 16:30 | disposition home or self-care (01) | DRG 787 ==
LOC: L-D 15:54 → OBT 15:54 → L-D 16:26 → OBT 17:47 → L-D 17:47 → PP1 23:59
PROVIDERS: ADMIT Obstetrics & Gynecology; ATTEND Obstetrics & Gynecology
PROC: 10D00Z1 Extraction of Products of Conception, Low, Open Approach (ICD-10-PCS; principal; 2019-04-25 19:00)
DX: O65.5 Obstructed labor due to abnormality of maternal pelvic organs (principal); D62 Acute posthemorrhagic anemia; O34.211 Maternal care for low transverse scar from previous cesarean delivery; O99.02 Anemia complicating childbirth; Z3A.39 39 weeks gestation of pregnancy; Z37.0 Single live birth
CPT/HCPCS: 62322; 76818; 85025; 85610; 85730; 86592; 86850; 86900; 86901; 87340; 88305; 99464; G0463; J0690; J1885; J2250; J2274; J2405; J2590; J2765; J7120